=== PATIENT | male | born 1980 ===

== ENCOUNTER 2022-03-09 15:29 | Emergency (ER) | payer SELFPAY ==
[2022-03-09] VITALS (38 sets, daily range): BP systolic 107–139; BP diastolic 70–108; PULSE 56–102; RESP 11–25; TEMP 36.7; O2SAT 98–100
--- NOTE | 2022-03-09 15:30 | RT.EKG_ITS ---
APPROVED REPORT Exam: Resting ECG Reason for Exam: chest pain Patient Location: E HR:71 bpm ECG Measurements Heart Rate 71 AXIS CA 191 P 64 QRSd 94 QRS 32 QT 386 T 52 QTc 419 Conclusion Sinus rhythm...normal P axis, V-rate 60- 99 ST elev, probable normal early repol pattern...ST elevation, age<55. Sinus. Normal axis. Benign early repolarization. No STEMI. I have reviewed and interpreted ECG and agree with software generated interpretation.
--- NOTE | 2022-03-09 15:43 | W.ED.GENAD ---
Discharge Plan Disposition Patient Disposition: HOME Condition: Improving Discharge Details Clinical Impression: Chest pain Primary Care Provider: None,None ED Provider: Michael Cobb Home Meds and New Rx's Prescriptions: No Action No Known Home Meds 0RF Discharge Instructions Instructions: Chest Pain (ED) Additional Instructions: Rapid cardiac rule out including CTA of the chest performed today reveals no obvious emergent process. I have placed you on the care management list to help expedite outpatient primary care follow-up. Please watch for new or worsening symptoms and return to the ER for any concerns. Jmtj-ybn-ybsvzoz medication such as Tylenol and/or Motrin as directed for discomfort. Medical Decision Making This is a 41-year-old gentleman, smoker quarter pack of cigarettes daily, typically resides in [place] but is here on a work visa, here since December and will be here until the end of the year, presenting to the ER for evaluation of some left-sided chest pain. He reports he had similar episodes back in September, that resolved on its own and he never sought medical attention. Patient states that he has been having intermittent symptoms for the past 20 days, and reports 14 or 15 episodes. Reports the episodes come in anytime during the day, nothing really makes them worse or better. He denies any exertional component of his symptoms. He has not taken any ehpk-uts-lprawkh medications for his symptoms. Patient reports that he has at times it will-sharp sensation in the left chest and at times seems to radiate to and from his neck and shoulder but not down his arm, admits to paresthesias but not weakness. Patient currently denies any symptoms in his neck or shoulder. He denies history of cardiac or pulmonary disease. Clinically he appears well, nontoxic, hemodynamically stable. Differential is broad and includes but not excluded to ACS, PE, pneumonia, cervical radiculopathy, chest wall discomfort, GERD, gastritis, etc. Plan is to give a single full dose of aspirin, initiate a cardiac work-up including a delta troponin as well as a CTA of the chest. Laboratory values are grossly unremarkable for any obvious emergent process. Patient reports a dull sensation to his left chest. 30 IV Toradol given. He is agreeable to awaiting a delta troponin. CTA reveals no acute etiology, negative for PE. Delta troponin remains less than 50. The translation line was once used again. Patient is asymptomatic, symptoms completely resolved with IV Toradol. We discussed his benign work-up thus far. No clear etiology of the symptoms. Given the duration of the symptoms, benign work-up, plan is for discharge home but I will place him on the care management list to expedite outpatient primary care follow-up [place]. Discussed orxv-kva-vjrjwvs Tylenol and/or Motrin as directed for discomfort. Strict discharge and return precautions were provided. This documentation was generated using [employer] dictation system, please disregard any oddities of phrase or misspellings. Imaging Data Radiologic Study: Attestation: I personally reviewed and interpreted this imaging study as follows: Imaging: CT Scan Radiologist's impression: PROCEDURE INFORMATION: Exam: CTA Chest With Contrast Exam date and time: 03/09/2022 17:49 Age: 41 years old Clinical indication: Other: Chest pain TECHNIQUE: Imaging protocol: Computed tomographic angiography of the chest with contrast. 3D rendering (Not supervised by radiologist): MIP and/or 3D reconstructed images were created by the technologist. Contrast material: OMNIPAQUE 350; Contrast volume: 100 ml; Contrast route: INTRAVENOUS (IV); COMPARISON: No relevant prior studies available. FINDINGS: Pulmonary arteries: No pulmonary emboli. Aorta: No aortic aneurysm. No aortic dissection. Lungs: Motion in the lungs. No airspace consolidation to suggest pneumonia or pulmonary infarct. Microatelectasis. Pleural spaces: No pneumothorax. No pleural effusion. Heart: No cardiomegaly. No pericardial effusion. Lymph nodes: No enlarged lymph nodes. Bones/joints: No acute fracture. Soft tissues: Circumscribed left posterior chest wall subcutaneous lesion most likely a sebaceous cyst or other benign structure. IMPRESSION: 1. No acute findings.2. No pulmonary emboli are seen. 3. Incidental findings as described. Lab Data Lab results reviewed: Yes I reviewed the patient's lab results. Labs: Laboratory Tests Range/Units 03/09/22 03/09/22 03/09/22 16:30 16:30 16:30 WBC (4.4-10.8) 10^3/uL 9.39 RBC (4.36-5.78) 10^6/uL 4.86 Hgb (13.5-17.5) g/dL 15.0 Hct (40.0-50.0) % 43.5 MCV (80-95) fL 89.5 MCH (27.0-33.0) pg 30.9 MCHC (32.0-36.0) % 34.5 RDW (11.8-14.1) % 11.7 L Plt Count (130-400) 10^3/uL 231 MPV (8.0-11.0) fL 10.7 Immature Gran % 0.2 Neutrophils % 64.9 Lymphocytes % 24.2 Monocytes % 6.8 Eosinophils % 3.5 Basophils % 0.4 Nucleated RBC % (0.0-0.3) % 0.0 Absolute Neutrophils (1.2-6.7) 10^3/uL 6.09 Absolute Lymphocytes (1.2-3.4) 10^3/uL 2.27 Absolute Monocytes (0.1-0.8) 10^3/uL 0.64 Absolute Eosinophils (0.0-0.7) 10^3/uL 0.33 Absolute Basophils (0.0-0.2) 10^3/uL 0.04 PT (9.3-11.0) sec 9.7 INR (0.9-1.1) 1.0 APTT (21.0-27.5) sec 22.2 D-Dimer (<500) ng/mlFEU 215 Sodium (136-145) mmol/L 141 Potassium (3.5-5.1) mmol/L 4.2 Chloride (98-107) mmol/L 106 Carbon Dioxide (21.0-32.0) mmol/L 25.9 Anion Gap (3-11) mmol/L 9.1 BUN (7-18) mg/dL 11 Creatinine (0.70-1.30) mg/dL 0.9 Estimated GFR/1.73 m2 (mL/min/1.73m2) >= 60.00 Glucose (74-106) mg/dL 100 Calcium (8.5-10.1) mg/dL 8.4 L Magnesium (1.8-2.4) mg/dL 2.0 Total Bilirubin (0.2-1.0) mg/dL 0.4 AST (15-37) U/L 25 ALT (16-63) U/L 54 Alkaline Phosphatase (46-116) U/L 78 Troponin I (<or=60) ng/L < 50 Total Protein (6.4-8.2) g/dL 7.0 Albumin (3.4-5.0) g/dL 4.0 COVID-19 Source SARS-CoV-2 (PCR) (Negative) Range/Units 03/09/22 03/09/22 17:04 19:05 WBC (4.4-10.8) 10^3/uL RBC (4.36-5.78) 10^6/uL Hgb (13.5-17.5) g/dL Hct (40.0-50.0) % MCV (80-95) fL MCH (27.0-33.0) pg MCHC (32.0-36.0) % RDW (11.8-14.1) % Plt Count (130-400) 10^3/uL MPV (8.0-11.0) fL Immature Gran % Neutrophils % Lymphocytes % Monocytes % Eosinophils % Basophils % Nucleated RBC % (0.0-0.3) % Absolute Neutrophils (1.2-6.7) 10^3/uL Absolute Lymphocytes (1.2-3.4) 10^3/uL Absolute Monocytes (0.1-0.8) 10^3/uL Absolute Eosinophils (0.0-0.7) 10^3/uL Absolute Basophils (0.0-0.2) 10^3/uL PT (9.3-11.0) sec INR (0.9-1.1) APTT (21.0-27.5) sec D-Dimer (<500) ng/mlFEU Sodium (136-145) mmol/L Potassium (3.5-5.1) mmol/L Chloride (98-107) mmol/L Carbon Dioxide (21.0-32.0) mmol/L Anion Gap (3-11) mmol/L BUN (7-18) mg/dL Creatinine (0.70-1.30) mg/dL Estimated GFR/1.73 m2 (mL/min/1.73m2) Glucose (74-106) mg/dL Calcium (8.5-10.1) mg/dL Magnesium (1.8-2.4) mg/dL Total Bilirubin (0.2-1.0) mg/dL AST (15-37) U/L ALT (16-63) U/L Alkaline Phosphatase (46-116) U/L Troponin I (<or=60) ng/L < 50 Total Protein (6.4-8.2) g/dL Albumin (3.4-5.0) g/dL COVID-19 Source Nasal/Nares SARS-CoV-2 (PCR) (Negative) Negative ECG Data Attestation: I personally reviewed and interpreted this ECG (s) as follows: Interpretation: Please see official report by Dr. Sr. Sinus rhythm, ventricular rate 78, right bundle branch block, no STEMI. HPI General Mode of arrival: ambulatory. Date/Time Provider Initiated Documentation: 03/09/22 15:43. Limitations to Documentation: no limitations. Information obtained by: patient (and friend/coworker) and buffet server. History of Present Illness 41 year old M presents to the emergency department with the chief complaint of Chest pain, described as moderate, with intensity rated at 6. Quality is described as aching and sharp, and is localized to the neck, chest, left and upper extremity. Patient neck and extremity. Patient started experiencing this day(s) (20) and it has been intermittent. improves with No relieving factors improve symptom(s), Movement worsens symptoms . Patient notes chest pain; denies cough, diaphoresis, fever/chills, headaches, nausea/vomiting, shortness of breath, syncope and weakness. Patient did receive the following treatments prior to arrival, none Related Data Home Medications Medication Instructions Recorded Confirmed Unknown [No Known Home Meds] 03/09/22 03/09/22 Allergies Allergy/AdvReac Type Severity Reaction Status Date / Time No Known Allergies Allergy Unverified 03/09/22 15:56 Review of Systems Constitutional Constitutional: Denies fatigue, Denies fever(s), Denies headache(s) and Denies weakness Eyes Eyes: Denies change in vision ENT Ears, Nose, Mouth, and Throat: Denies headache(s) and Reports neck pain Cardiovascular Cardiovascular: Reports chest pain and Reports dyspnea (Report pain takes his breath away) Respiratory Respiratory: Denies cough and Reports dyspnea (Report pain takes his breath away) Gastrointestinal Gastrointestinal: Denies abdominal pain, Denies nausea and Denies vomiting Musculoskeletal Musculoskeletal: Denies back pain, Denies arthralgias, Reports neck pain, Denies numbness, Denies stiffness and Reports tingling Integumentary/Breasts Skin/Breast: Denies rash Neurologic Neurologic: Denies headache(s), Denies numbness, Reports tingling and Denies weakness Endocrine Endocrine: Denies fatigue Hematologic/Lymphatic Hematologic/Lymphatic: Denies easy bleeding and Denies easy bruising PFSH All Active Problems Chest pain (Acute) Social History Smoking/Tobacco Use Status: Current every day Tobacco Type: cigarettes Smoking risk assessment performed?: Yes Drug use: Never Exam Const General: cooperative, healthy appearing, comfortable and no acute distress Orientation: alert and awake [facility] Head: normal to inspection, normocephalic and atraumatic Face and sinus: normal facial exam Mouth: moist mucous membranes Eyes General: appearance normal, both eyes and all related structures Conjunctivae: conjunctivae normal Neck Neck: normal visual inspection, full ROM, no lymphadenopathy, no meningeal signs, trachea midline, supple and nontender Chest Chest: normal inspection of the chest and normal palpation of entire chest wall Resp Effort & Inspection: normal respiratory effort and able to speak in complete sentences Auscultation: clear to auscultation bilaterally Cardio Rate: regular rate Rhythm: regular rhythm GI Inspection: normal to inspection Palpation: soft, not firm, no guarding, no pulsatile masses and nontender Auscultation: normal bowel sounds Back/Spine/Pelvis Back: No back tenderness Back/spine/pelvis image: 1. Nontender or erythematous what appears to be a sebaceous cyst. Per patient, has been over 10 years Skin Rashes: no rashes Neuro General: patient alert, patient awake, moves all extremities and no focal motor deficits Cognition: normal cognition Speech: speech normal Gait: normal gait Motor: muscle tone normal throughout and strength 5/5 throughout Sensory Exam: no sensory deficits noted Extrem General: normal to inspection, full ROM, capillary refill normal, no pedal edema and no calf tenderness Psych Appearance: grossly normal Mental Status: mental status grossly normal
--- NOTE | 2022-03-09 16:15 | DI.CT_ITS ---
Exam(s) CT CHEST PE CTA EXAM: CT CHEST PE CTA CLINICAL HISTORY: chest pain. TECHNIQUE: Imaging Protocol: CT angiography of the chest was performed using pulmonary embolus omaira col. Multi planar reconstructions were performed. CONTRAST MATERIAL: Intravenous: Omnipaque 350 Contrast volume: 100 cc COMPARISON: No exams were available for comparison FINDINGS: CHEST: PULMONARY ARTERIES: There are no intraluminal filling defects to suggest acute pulmonary emboli. LUNGS: There are no infiltrates nor evidence of pulmonary infarction.. There are no pleural effusions . MEDIASTINUM: There is no hilar nor mediastinal adenopathy. Visualized thyroid unremarkable. CARDIAC: Heart size is upper normal. There is no pericardial effusion.Caliber of the thoracic aorta is within normal limits. No evidence of dissection. There is no significant shift of the interventri cular septum. PARTIALLY VISUALIZED UPPERMOST ABDOMEN: Small nodule in the lateral limb of the right adrenal gland m easuring 8 9 millimeters, probably an incidental adenoma. Left adrenal gland unremarkable. No splen omegaly. Benign-appearing hypodensities in the liver which are either or hemangiomas; less likely om inous pathology. Nevertheless difficult to assess without IV contrast. OSSEOUS: No significant osseous lesions.. IMPRESSION: 1. No evidence of acute pulmonary emboli. No evidence of pulmonary infarction.No pleural effusions. 2. Small right adrenal nodule, probably benign adenoma 3. Also provided. Findings in the liver which are somewhat difficult to assess without IV contrast. RADIATION DOSE DELIVERED: 479.95mGy.cm Total DLP DATA REPOSITORY: All CT scans at this facility are submitted to the National Radiology Data Registry (NRDR) Dose Index Registry (DIR) with the [employer] ([employer]). RADIATION OPTIMIZATION: All CT scans at this facility use at least one of these dose optimization te chniques: automated exposure control; mA and/or kV adjustment per patient size (includes targeted exa ms where dose is matched to clinical indication); or iterative reconstruction.
[2022-03-09] MEDS: Aspirin 81 MG CHEW 324 MG CH (16:33)
[2022-03-09 16:35] LABS: Abs Immature Grans 0.02 10^3/uL (0.0-0.06); Absolute Basophil Count 0.04 10^3/uL (0.0-0.2); Absolute Eosinophil Count 0.33 10^3/uL (0.0-0.7); Absolute Lymphocyte Count 2.27 10^3/uL (1.2-3.4); Absolute Monocyte Count 0.64 10^3/uL (0.1-0.8); Absolute Neutrophil Count 6.09 10^3/uL (1.2-6.7); Basophils % 0.4; Eosinophils % 3.5; HCT 43.5 % (40.0-50.0); Immature Grans % 0.2; Lymphocytes % 24.2; MCH 30.9 pg (27.0-33.0); MCHC 34.5 % (32.0-36.0); MCV 89.5 fL (80-95); MPV 10.7 fL (8.0-11.0); Monocytes % 6.8; Neutrophils % 64.9; Platelet Count 231 10^3/uL (130-400); RBC 4.86 10^6/uL (4.36-5.78); RDW 11.7 % (11.8-14.1); RDW-SD 37.8 fL; WBC 9.39 10^3/uL (4.4-10.8)
[2022-03-09 16:50] LABS: ALT 54 U/L (16-63); AST 25 U/L (15-37); Alkaline Phosphatase 78 U/L (46-116); Anion Gap 9.1 mmol/L (3-11); BUN 11 mg/dL (7-18); Bilirubin, Total 0.4 mg/dL (0.2-1.0); CO2 25.9 mmol/L (21.0-32.0); CREATININE 0.9 mg/dL (0.70-1.30); Calcium 8.4 mg/dL (8.5-10.1); Chloride 106 mmol/L (98-107); Glucose 100 mg/dL (74-106); Potassium 4.2 mmol/L (3.5-5.1); Sodium 141 mmol/L (136-145); Troponin I < 50 ng/L (<or=60)
[2022-03-09 17:08] LABS: PTT Activated 22.2 sec (21.0-27.5); Prothrombin Time 9.7 sec (9.3-11.0)
[2022-03-09 17:16] LABS: Source Nasal/Nares
[2022-03-09 17:21] LABS: D-Dimer 215 ng/mlFEU (<500)
[2022-03-09 18:00] LABS: COVID-19 PCR Negative (Negative)
[2022-03-09] MEDS: Normal Saline Flush 10 ML SYR IVP (18:00)
[2022-03-09] MEDS: Omnipaque 350 MG/ML 100 ML BTL IJ (18:00)
--- NOTE | 2022-03-09 18:34 | DI.VRAD_ITS ---
PROCEDURE INFORMATION: Exam: CTA Chest With Contrast Exam date and time: 03/09/2022 17:49 Age: 41 years old Clinical indication: Other: Chest pain TECHNIQUE: Imaging protocol: Computed tomographic angiography of the chest with contrast. 3D rendering (Not supervised by radiologist): MIP and/or 3D reconstructed images were created by the technologist. Contrast material: OMNIPAQUE 350; Contrast volume: 100 ml; Contrast route: INTRAVENOUS (IV); COMPARISON: No relevant prior studies available. FINDINGS: Pulmonary arteries: No pulmonary emboli. Aorta: No aortic aneurysm. No aortic dissection. Lungs: Motion in the lungs. No airspace consolidation to suggest pneumonia or pulmonary infarct. Microatelectasis. Pleural spaces: No pneumothorax. No pleural effusion. Heart: No cardiomegaly. No pericardial effusion. Lymph nodes: No enlarged lymph nodes. Bones/joints: No acute fracture. Soft tissues: Circumscribed left posterior chest wall subcutaneous lesion most likely a sebaceous cyst or other benign structure. IMPRESSION: 1. No acute findings. 2. No pulmonary emboli are seen. 3. Incidental findings as described. Dictated and Authenticated by: Alem Dc MD. Ordering:MATTHEW Rodriguez MD
[2022-03-09] MEDS: Ketorolac 30 MG/ML VIAL IVP (19:13)
[2022-03-09 19:24] LABS: Troponin I < 50 ng/L (<or=60)
== END 2022-03-09 19:50 | disposition home or self-care (01) ==
PROVIDERS: Emergency Provider Physician Assistant
DX: R07.9 Chest pain, unspecified (principal); R20.2 Paresthesia of skin; F17.210 Nicotine dependence, cigarettes, uncomplicated; Z20.822 Contact with and (suspected) exposure to COVID-19
CPT/HCPCS: 71275; 80053; 87635; 93005; 96374; 99284; 99285; 83735; 84484; 85025; 85379; 85610; 85730; 93010; J1885; J3490